=== PATIENT | male | born 1995 | race Two or more races ===

== ENCOUNTER 2023-02-27 09:42 | Emergency (ER) | payer OTHER ==
[~2023-02-27] VITALS: Ht 185.4 cm; Wt 118.4 kg
== END 2023-02-27 10:59 | disposition home or self-care (01) ==
LOC: ER 09:43
DX: S61.422A Laceration with foreign body of left hand, initial encounter (principal); W26.0XXA Contact with knife, initial encounter; Y93.89 Activity, other specified; Y92.512 Supermarket, store or market as the place of occurrence of the external cause

== ENCOUNTER 2023-06-09 00:24 | Emergency (ER) | payer OTHER ==
[~2023-06-09] VITALS: Ht 175.3 cm; Wt 99.8 kg
[2023-06-09] MEDS ORDERED: FAMOTIDINE/PF 20 MG in 0.9 % SODIUM CHLORIDE 8 ML IV PUSH STA (01:31)
[2023-06-09] MEDS ORDERED: KETOROLAC TROMETHAMINE 30 MG VIAL IV ONE (01:45)
[2023-06-09 01:49] LABS: HEMATOCRIT 44.3 % (39.0-48.0); HEMOGLOBIN 15.1 g/dL (13-16.00); MEAN CELL VOLUME 84.3 fL (80.0-100.00); MEAN CORPUSCULAR HEMOGLOBIN 28.6 pg (27.00-32.0); PLATELET COUNT 195 K/uL (150-450); RED BLOOD COUNT 5.26 M/uL (4.00-6.00); RED CELL DISTRIBUTION WIDTH 14.1 % (11.5-14.5)
[2023-06-09 02:23] LABS: ALBUMIN 3.4 gm/dL (3.4-5.0); BILIRUBIN TOTAL 1.07 mg/dL (0.3-1.2); CALCIUM 9.4 mg/dL (8.5-10.1); CREATININE SERUM 1.02 mg/dL (0.70-1.30); GFR 88.28; GLOBULINA 3.7 G/DL (2.4-3.5); POTASSIUM 3.96 mEq/L (3.5-5.1); TOTAL PROTEIN 7.1 gm/dL (6.4-8.2)
[2023-06-09] MEDS ORDERED: LEVSIN/SL0.125 MG SL (04:37)
[2023-06-09] MEDS ORDERED: PEPCID AC20 MG PO (04:37)
== END 2023-06-09 04:41 | disposition home or self-care (01) ==
LOC: ER 00:24
PROVIDERS: General Practice
DX: K29.70 Gastritis, unspecified, without bleeding (principal)

== ENCOUNTER 2023-06-18 09:43 | Emergency (ER) | payer OTHER ==
[~2023-06-18] VITALS: Ht 185.4 cm; Wt 114.8 kg
[~2023-06-18 09:43] MED LIST: LEVSIN/SL0.125 MG SL; PEPCID AC20 MG PO
[2023-06-18] MEDS ORDERED: GENTAMICIN SULFA5 ML OP (10:53)
== END 2023-06-18 11:01 | disposition home or self-care (01) ==
LOC: ER 09:44
DX: H00.15 Chalazion left lower eyelid (principal)